=== PATIENT | male | born 1955 | race Two or more races ===

== ENCOUNTER 2020-09-27 16:04 | Emergency (ER) | payer OTHER ==
[~2020-09-27] VITALS: Ht 177.8 cm; Wt 70.8 kg
== END 2020-09-27 20:37 | disposition home or self-care (01) ==
LOC: ER 16:04
DX: S01.82XA Laceration with foreign body of other part of head, initial encounter (principal); W45.8XXA Other foreign body or object entering through skin, initial encounter; Y93.89 Activity, other specified; Y92.89 Other specified places as the place of occurrence of the external cause; Y99.8 Other external cause status